=== PATIENT | female | born 1990 | race African-American/Black ===

== ENCOUNTER 2023-10-03 11:09 | Observation (INO) | payer OTHER ==
[2023-10-03] MEDS ORDERED: LACTATED RINGERS SOLUTION 1000 ML INFUS.BAG IV ONE (13:16)
[2023-10-03] MEDS ORDERED: ONDANSETRON 4 MG/2 ML VIAL IVPUSH ONE (13:16)
[2023-10-03] MEDS ORDERED: ONDANSETRON 4 MG/2 ML VIAL ONE (14:00)
[2023-10-03 14:48] LABS: BASO % 1.2 % (0-2.0); EOS % 0.9 % (0-4.5); HEMATOCRIT 38.9 % (32.4-45.2); LYMPH % 29.6 % (8-40); MCH 32.3 pg (25.7-33.7); MCHC 33.3 g/dl (32.0-36.0); MEAN CELL VOLUME 96.9 fl (80-96); MEAN PLT VOLUME 9.4 fl (7.5-11.1); MONO % 16.6 % (3.8-10.2); NEUT % 51.7 % (42.8-82.8); PLATELET COUNT 182 10^3/uL (134-434); RBC 4.02 M/mm3 (3.60-5.2); RDW 13.9 % (11.6-15.6); WHITE BLOOD COUNT 3.7 K/mm3 (4.0-10.0)
[2023-10-03 14:56] LABS: INR 1.18 (0.83-1.09); PROTHROMBIN TIME (PATIENT) 13.7 SEC (9.7-13.0)
[2023-10-03 14:58] LABS: ACTIVATED PTT 28.6 SECONDS (25.2-36.5); POTASSIUM 3.3 mmol/L (3.5-5.1)
[2023-10-03 15:00] LABS: ALBUMIN 2.9 g/dl (3.4-5.0); BLOOD UREA NITROGEN 6.8 mg/dL (7-18); CALCIUM 9.5 mg/dL (8.5-10.1); MAGNESIUM 1.7 mg/dL (1.8-2.4)
[2023-10-03 15:03] LABS: CREATININE 0.5 mg/dL (0.55-1.3)
[2023-10-03 15:05] LABS: BILIRUBIN,TOTAL 0.5 mg/dL (0.2-1); TOT PROT 6.9 g/dl (6.4-8.2)
[2023-10-03] MEDS ORDERED: KCL 10 MEQ IVPB 10 MEQ/100 ML INFUS.BAG IVPB ONE (21:08)
[2023-10-03] MEDS: KCL 20 MEQ PREMIX BAG 20 MEQ/100 ML INFUS.BAG IVPB SCH ×2 (21:17→22:09)
[2023-10-03] MEDS ORDERED: MAGNESIUM SULF 50% (8.12 MEQ/2 ML-1 GM VIAL) IVPB ONE (22:07)
[2023-10-04] MEDS ORDERED: MAGNESIUM 2GM/50ML STERILE WATER IVPB IVPB ONE (00:45)
[2023-10-04] MEDS ORDERED: SODIUM CHLORIDE 1,000 ML IV STA ×2 (00:53→00:55)
[2023-10-04] MEDS ORDERED: SODIUM CHLORIDE 1,000 ML with POTASSIUM CHLORIDE 40 MEQ IV SCH (01:00)
[2023-10-04] MEDS ORDERED: ONDANSETRON 4 MG/2 ML VIAL IVPUSH PRN (01:04)
[2023-10-04 04:09] VITALS: BMI 27.8
[2023-10-04] MEDS: METOPROLOL TARTRATE 25 MG TABLET (FP) PO SCH ×2 (06:29→21:21)
[2023-10-04 08:04] LABS: HEMATOCRIT 33.1 % (32.4-45.2); HEMOGLOBIN 10.8 GM/dL (10.7-15.3); MCHC 32.6 g/dl (32.0-36.0); MEAN CELL VOLUME 98.3 fl (80-96); MEAN PLT VOLUME 9.2 fl (7.5-11.1); PLATELET COUNT 162 10^3/uL (134-434); RBC 3.36 M/mm3 (3.60-5.2); RDW 13.8 % (11.6-15.6); WHITE BLOOD COUNT 4.1 K/mm3 (4.0-10.0)
[2023-10-04 08:28] LABS: POTASSIUM 3.1 mmol/L (3.5-5.1)
[2023-10-04 08:33] LABS: BLOOD UREA NITROGEN 5.1 mg/dL (7-18); CALCIUM 8.1 mg/dL (8.5-10.1); MAGNESIUM 2.2 mg/dL (1.8-2.4)
[2023-10-04 08:36] LABS: CREATININE 0.4 mg/dL (0.55-1.3); PHOSPHOROUS 3.1 mg/dL (2.5-4.9)
[2023-10-04 08:38] LABS: BILIRUBIN,TOTAL 0.5 mg/dL (0.2-1); TOT PROT 5.3 g/dl (6.4-8.2)
[2023-10-04 08:52] LABS: ALBUMIN 2.2 g/dl (3.4-5.0)
[2023-10-04] MEDS: KCL 10 MEQ IVPB 10 MEQ/100 ML INFUS.BAG IVPB SCH ×3 (11:08→14:34)
[2023-10-04] MEDS: ENOXAPARIN NA (PORCINE) 40 MG/0.4 ML DISP.SYRIN SQ SCH (11:37)
[2023-10-04] MEDS ORDERED: ACETAMINOPHEN 1000 MG/100 ML BAG IVPB PRN (16:41)
[2023-10-04] MEDS: PANTOPRAZOLE SODIUM 40 MG VIAL IVPUSH SCH (17:33)
[2023-10-04] MEDS ORDERED: POTASSIUM CHLORIDE 40 MEQ in SODIUM CHLORIDE 1,000 ML IV SCH (22:30)
[2023-10-05 05:44] VITALS: RESP 18
[2023-10-05 07:28] LABS: HEMATOCRIT 31.9 % (32.4-45.2); HEMOGLOBIN 10.5 GM/dL (10.7-15.3); MCH 32.5 pg (25.7-33.7); MEAN CELL VOLUME 98.8 fl (80-96); MEAN PLT VOLUME 9.2 fl (7.5-11.1); PLATELET COUNT 168 10^3/uL (134-434); RBC 3.23 M/mm3 (3.60-5.2); RDW 13.8 % (11.6-15.6); WHITE BLOOD COUNT 3.3 K/mm3 (4.0-10.0)
[2023-10-05 07:41] LABS: CHLORIDE 113 mmol/L (98-107); POTASSIUM 4.5 mmol/L (3.5-5.1); SODIUM 143 mmol/L (136-145)
[2023-10-05 08:04] LABS: ANION GAP 5 mmol/L (4-13); CO2 26 mmol/L (21-32); GLUCOSE,RANDOM 79 mg/dL (74-106)
[2023-10-05 08:05] LABS: ALBUMIN 2.1 g/dl (3.4-5.0); CALCIUM 7.9 mg/dL (8.5-10.1); MAGNESIUM 1.9 mg/dL (1.8-2.4)
[2023-10-05 08:07] LABS: PHOSPHOROUS 2.8 mg/dL (2.5-4.9); SGPT/ALT 32 U/L (13-61)
[2023-10-05 08:08] LABS: CREATININE 0.3 mg/dL (0.55-1.3); SGOT/AST 34 U/L (15-37)
[2023-10-05 08:09] LABS: BILIRUBIN,TOTAL 0.4 mg/dL (0.2-1); TOT PROT 4.9 g/dl (6.4-8.2)
[2023-10-05 08:10] LABS: ALK PHOS 61 U/L (45-117)
[2023-10-05 08:34] LABS: BLOOD UREA NITROGEN 2.7 mg/dL (7-18)
[2023-10-05] MEDS: PANTOPRAZOLE SODIUM 40 MG VIAL IVPUSH SCH (09:59)
[2023-10-05] MEDS: ENOXAPARIN NA (PORCINE) 40 MG/0.4 ML DISP.SYRIN SQ SCH (09:59)
[2023-10-05 15:03] VITALS: BP 108/70; PULSE 78; TEMP 98
== END 2023-10-05 16:11 | disposition home or self-care (01) ==
LOC: JER 11:09 → JERBED 21:22 → J4W 23:48
PROVIDERS: ADMIT Internal Medicine; ATTEND Internal Medicine
PROC: 3E023GC Introduction of Other Therapeutic Substance into Muscle, Percutaneous Approach (ICD-10-PCS; principal; 2023-10-03)
PROC: 3E0337Z Introduction of Electrolytic and Water Balance Substance into Peripheral Vein, Percutaneous Approach (ICD-10-PCS; 2023-10-03)
PROC: 3E033GC Introduction of Other Therapeutic Substance into Peripheral Vein, Percutaneous Approach (ICD-10-PCS; 2023-10-03)
DX: I47.10 Supraventricular tachycardia, unspecified (principal); E87.8 Other disorders of electrolyte and fluid balance, not elsewhere classified; R00.2 Palpitations; Z98.84 Bariatric surgery status; F32.A Depression, unspecified; R73.03 Prediabetes; E66.9 Obesity, unspecified; E87.6 Hypokalemia; E83.42 Hypomagnesemia; R42 Dizziness and giddiness; R63.0 Anorexia; R63.30 Feeding difficulties, unspecified; Z88.2 Allergy status to sulfonamides
CPT/HCPCS: 36415; 71045-TC-FY; 74177-TC; 74240-TC-FY; 80053; 83605; 83690; 83735; 84100; 84439; 84443; 84484; 84703; 85025; 85027; 85610; 85730; 86850; 86900; 86901; 93005; 93010; 93306-TC; 96361; 96372; 96374; 96375; 99285-25; G0378; Q9967